=== PATIENT | female | born 2000 | race Caucasian/White ===

== ENCOUNTER → 2024-04-19 13:09 | Outpatient (REF) | payer BC, SELFPAY ==
[2024-04-21 07:35] LABS: Quantiferon Mitogen minus NIL 9.98 IU/mL; Quantiferon NIL 0.02 IU/mL; Quantiferon Plus TB1 minus NIL 0.01 IU/mL (<=0.34); Quantiferon TB Gold Plus Negative (Negative)
== END ==
LOC: REG 13:09
PROVIDERS: ATTENDING PHYSICIAN Family Medicine
DX: Z11.1 Encounter for screening for respiratory tuberculosis (principal)
CPT/HCPCS: 36415; 86480

== ENCOUNTER → 2024-08-03 11:21 | Outpatient (REF) | payer BC, SELFPAY ==
[2024-08-03 13:30] LABS: Potassium 4.5 mmol/L (3.5-5.1)
== END ==
LOC: REG 11:21
PROVIDERS: ATTENDING PHYSICIAN Physician Assistant Medical; FAMILY PHYSICIAN Family Medicine
DX: L70.0 Acne vulgaris (principal)
CPT/HCPCS: 36415; 84132

== ENCOUNTER → 2025-02-21 09:38 | Outpatient (REF) | payer BC, SELFPAY ==
[2025-02-21 10:14] LABS: % Basophils 0.7 % (0-2); % Eosinophils 1.6 % (0-6); % Immature Granulocytes 0.4 % (0-0.5); % Lymphocytes 36.6 % (20.5-51.1); % Monocytes 5.7 % (1.7-9.3); Absolute Eosinophils 0.1 10^3/uL (0-0.7); Absolute Monocytes 0.3 10^3/uL (0.1-0.6); Absolute Neutrophils 3.1 10^3/uL (1.4-6.5); Hemoglobin 13.9 g/dL (12.0-16.0); Mean Corp Hgb Conc. 33.9 g/dL (33.0-37.0); Mean Corpuscular Hgb 30.6 pg (27.0-31.0); Mean Corpuscular Volume 90.3 fL (81.0-99.0); Mean Platelet Volume 9.6 fL (7.4-10.4); Nucleated Red Blood Cells % 0 %; Platelet Count 263 10^3/uL (130-400); Red Blood Cell Count 4.54 10^6/uL (4.20-5.40); Red Cell Dist. Width 11.9 % (11.5-14.5); White Blood Cell Count 5.6 10^3/uL (4.8-10.8)
[2025-02-21 10:36] LABS: HCG, Serum Qualitative Screen Negative
[2025-02-21 10:40] LABS: Blood Urea Nitrogen 13 mg/dl (7-17); Calcium 9.7 mg/dl (8.4-10.2); Carbon Dioxide 26 mmol/L (22-30); Chloride 110 mmol/L (98-107); Creatine Phosphokinase 65 U/L (30-135); Glucose 89 mg/dl (70-99); HDL Cholesterol 90 mg/dl; LDL Cholesterol, Calculated 73 mg/dl; Potassium 4.5 mmol/L (3.5-5.1); Sodium 142 mmol/L (135-145); Total Cholesterol 177 mg/dl (50-199); Triglyceride 71 mg/dl (10-149); Very Low Density Lipoprotein 14 mg/dl (0-30); eGFR > 60.00
[2025-02-21 10:49] LABS: Potassium 4.6 mmol/L (3.5-5.1)
[2025-02-21 10:54] LABS: Free T4 1.08 ng/dl (0.78-2.19)
[2025-02-21 11:07] LABS: TSH 1.97 uIU/ml (0.47-4.68)
== END ==
LOC: REG 09:38
PROVIDERS: ATTENDING PHYSICIAN Surgery; FAMILY PHYSICIAN Physician Assistant Medical; REFERRING PHYSICIAN Family Medicine
DX: Z01.818 Encounter for other preprocedural examination (principal); L70.0 Acne vulgaris; Z00.00 Encounter for general adult medical examination without abnormal findings
CPT/HCPCS: 36415; 80048; 80061; 82550; 84100; 84132; 84439; 84443; 84550; 84703; 85025

== ENCOUNTER → 2025-08-23 11:31 | Outpatient (REF) | payer BC, SELFPAY | LOC: CPAP 11:31 | PROVIDERS: ATTENDING PHYSICIAN Student in an Organized Health Care Education/Training Program | DX: Z11.3 Encounter for screening for infections with a predominantly sexual mode of transmission (principal) | CPT/HCPCS: 87491; 87591 ==